=== PATIENT | male | born 2000 | race Caucasian/White ===

== ENCOUNTER 2022-11-21 07:57 | Emergency (ER) | payer BC, SELFPAY ==
[2022-11-21] MEDS ORDERED: Lidocaine 1% w/Epinephrine 1:100K 20 ML VIAL ONE (09:10)
== END 2022-11-21 10:29 | disposition home or self-care (01) ==
LOC: ERS 07:57
DX: K08.89 Other specified disorders of teeth and supporting structures (principal)
CPT/HCPCS: 96372; 99282